=== PATIENT | female | born 1985 | race Caucasian/White ===

== ENCOUNTER 2023-12-30 15:06 | Inpatient (IN) | payer BC, SELFPAY ==
[2023-12-30 15:22] VITALS: BP 146/82; BMI 23.2
[2023-12-30] MEDS: PENICILLIN 110 UNITS IV (16:22)
[2023-12-30] MEDS: LR 1000 IV (16:24)
[2023-12-30 16:37] LABS: % Basophils 0.1 % (0-2); % Eosinophils 0.4 % (0-6); % Immature Granulocytes 0.5 % (0-0.5); % Lymphocytes 18.3 % (20.5-51.1); % Monocytes 6.3 % (1.7-9.3); % Neutrophils 74.4 % (42.2-75.2); Absolute Lymphocytes 1.5 10^3/uL (1.2-3.4); Absolute Monocytes 0.5 10^3/uL (0.1-0.6); Absolute Neutrophils 6.1 10^3/uL (1.4-6.5); Hematocrit 34.5 % (37.0-47.0); Hemoglobin 11.5 g/dL (12.0-16.0); Mean Corp Hgb Conc. 33.3 g/dL (33.0-37.0); Mean Corpuscular Hgb 30.4 pg (27.0-31.0); Mean Corpuscular Volume 91.3 fL (81.0-99.0); Mean Platelet Volume 10.2 fL (7.4-10.4); Nucleated Red Blood Cells % 0 %; Platelet Count 153 10^3/uL (130-400); Red Blood Cell Count 3.78 10^6/uL (4.20-5.40); Red Cell Dist. Width 13.6 % (11.5-14.5); White Blood Cell Count 8.1 10^3/uL (4.8-10.8)
[2023-12-30] MEDS: PITOCIN 30 UNITS/NSS 500 ML IV (17:14)
[2023-12-30] MEDS: SUBLIMAZE 100 MCG EPIDURAL (18:48)
[2023-12-30] MEDS: FENTANYL/BUPIVACAINE 100 EPIDURAL (18:49)
[2023-12-31 04:56] LABS: Hematocrit 30.3 % (37.0-47.0); Hemoglobin 10.2 g/dL (12.0-16.0)
[2023-12-31] MEDS: MOTRIN 600 MG PO (07:21)
[2023-12-31] MEDS: SENOKOT-S 1 TABLET PO (07:21)
[2024-01-01] MEDS: FEOSOL 325 MG PO (08:48)
[2024-01-01] MEDS: MOTRIN 600 MG PO (08:48)
[2024-01-01] MEDS: SENOKOT-S 1 TABLET PO (08:48)
[2024-01-01 09:57] LABS: Syphilis/T. pallidum Ab Reflex Negative (Negative)
== END 2024-01-01 10:12 | disposition home or self-care (01) | DRG 807 ==
LOC: LDRP 15:06
PROVIDERS: ADMITTING PHYSICIAN Obstetrics & Gynecology; ATTENDING PHYSICIAN Obstetrics & Gynecology; FAMILY PHYSICIAN Nurse Practitioner Adult Health
PROC: 0HQ9XZZ Repair Perineum Skin, External Approach (ICD-10-PCS; 2023-12-30)
PROC: 10907ZC Drainage of Amniotic Fluid, Therapeutic from Products of Conception, Via Natural or Artificial Opening (ICD-10-PCS; 2023-12-30)
PROC: 10E0XZZ Delivery of Products of Conception, External Approach (ICD-10-PCS; 2023-12-30)
DX: O99.824 Streptococcus B carrier state complicating childbirth (principal); Z37.0 Single live birth; O70.0 First degree perineal laceration during delivery; Z3A.39 39 weeks gestation of pregnancy
CPT/HCPCS: 36415; 85014; 85018; 85025; 86780; 86850; 86900; 86901